=== PATIENT | male | born 1985 | race Caucasian/White ===

== ENCOUNTER 2016-09-06 07:51 | Day surgery (SDC) | payer OTHER ==
[~2016-09-06] VITALS: Ht 185.4 cm; Wt 82.0 kg
[~2016-09-06 07:51] MED LIST: AMOX400S2 PO; AMOX875T PO; HYDR-3240 PO; HYDR473S51 PO; ONDA4TAB13 SL
[2016-09-06] MEDS ORDERED: LACTATED RINGERS 1,000 ML IV SCH (08:36)
[2016-09-06] MEDS ORDERED: NO MEDS PER PT (08:37)
[2016-09-06 08:38] VITALS: BP 127/90
[2016-09-06] MEDS ORDERED: LIDOCAINE 1%, 2ML ONE (08:45)
[2016-09-06] MEDS ORDERED: LIDOCAINE 1%, 2ML SQ PRN (09:00)
[2016-09-06] MEDS ORDERED: PLEASE ENTER HEIGHT AND WEIGHT MC SCH (09:00)
[2016-09-06] MEDS ORDERED: LIDOCAINE 1%-EPI 1:100K, 30ML ONE (10:01)
[2016-09-06] MEDS ORDERED: BUPIVACAINE/PF-EPI 0.25% 1:200K ONE (10:02)
[2016-09-06] MEDS ORDERED: BACITRACIN/POLYMIXIN B SULFATE OINT 14 GM ONE (10:02)
[2016-09-06] MEDS ORDERED: BALANCED SALT OPHTH IRRIG SOLN 18ML ONE (10:02)
[2016-09-06] MEDS ORDERED: MIDAZOLAM 1 MG/ML, 2ML ONE ×2 (10:17)
[2016-09-06] MEDS ORDERED: FENTANYL PF 100 MCG/2ML ONE ×2 (10:17)
[2016-09-06] MEDS ORDERED: PROPOFOL 10 MG/ML, 20ML ONE (10:20)
[2016-09-06] MEDS ORDERED: SUCCINYLCHOLINE 20 MG/ML, 10ML ONE (10:20)
[2016-09-06] MEDS ORDERED: ONDANSETRON 2MG/ML, 2ML ONE (10:20)
[2016-09-06] MEDS ORDERED: hydrALAzine 20 MG/ML, 1ML IV PRN (11:00)
[2016-09-06] MEDS ORDERED: ALBUTEROL SULFATE 2.5 MG/3 ML NPPB PRN (11:00)
[2016-09-06] MEDS ORDERED: METOPROLOL 1 MG/ML, 5ML IV PRN (11:00)
[2016-09-06] MEDS ORDERED: OXYcodone 5 MG/5 ML ORAL.SOL UDC PO PRN (11:00)
[2016-09-06] MEDS ORDERED: FENTANYL PF 100 MCG/2ML IV PRN (11:00)
[2016-09-06] MEDS ORDERED: HYDROmorphone 1 MG/ML, 1ML IV PRN (11:00)
[2016-09-06] MEDS ORDERED: MEPERIDINE/PF 25MG/0.5ML IVPush PRN (11:00)
[2016-09-06] MEDS ORDERED: ACETAMINOPHEN 325 MG TABLET PO PRN (11:00)
[2016-09-06] MEDS ORDERED: PROMETHAZINE 25 MG/ML, 1ML IV PRN (11:00)
[2016-09-06] MEDS ORDERED: ACETAMINOPHEN 650 MG/20.3 ML UDC ONE (11:27)
[2016-09-06] MEDS ORDERED: OXYcodone 5 MG/5 ML ORAL.SOL UDC ONE (11:28)
== END 2016-09-06 13:00 ==
LOC: OUT 07:51
PROVIDERS: ATTEND Otolaryngology
DX: Z47.2 Encounter for removal of internal fixation device (principal)
CPT/HCPCS: 20670; J0330; J2250; J2405; J2704; J3010; J3490; J7120

== ENCOUNTER 2021-03-08 10:10 | Emergency (ER) | payer BC, OTHER ==
[~2021-03-08] VITALS: Ht 188 cm; Wt 84.1 kg
[~2021-03-08 10:10] MED LIST changes: +HYDR-2214 PO; -HYDR-3240 PO; +NO MEDS PER PT
--- NOTE | 2021-03-08 10:32 | NUR ---
shoe sprayer: pt drinking water in [facility], advised to be NPO
--- NOTE | 2021-03-08 12:14 | NUR ---
PT CAME IN CO ANXIETY AND SHAKINESS. IS PERSCRIBED ZOLOT BUT DOESNT TAKE IT REGULARLY
--- NOTE | 2021-03-08 12:38 | NUR ---
PATIENT AWAITING PROVIDER, STATES HE HAS BEEN HAVING WORSENING ANXIETY OVER THE LAST YEAR, HAS NOT SEEN A DOCTOR RECENTLY, WAS PRESECRIBED SERTRALINE BUT STOPPED TAKING, 'DIDN'T LIKE HOW IT MADE ME FEEL'. FAMILY AT BEDSIDE.
[2021-03-08 13:46] LABS: BASOPHILS % (AUTO) 1 % (0-1); EOSINOPHILS % (AUTO) 1 % (1-7); LYMPHOCYTES % (AUTO) 23 % (22-44); MEAN CORPUSCULAR HEMOGLOBIN 32.3 pg (27.5-34.5); MEAN CORPUSCULAR HGB CONC 34.9 g/dL (33.2-36.2); MEAN PLATELET VOLUME 8.7 fL (7.4-10.4); MONOCYTES % (AUTO) 11 % (2-9); NEUTROPHILS % (AUTO) 65 % (42-75); PLATELET COUNT 190 x10^3/uL (130-400); RED BLOOD COUNT 4.99 x10^6/uL (4.38-5.82); RED CELL DISTRIBUTION WIDTH 12.7 % (9.4-14.8)
[2021-03-08 13:57] LABS: ALBUMIN 4.3 g/dL (3.4-5.0); ANION GAP 9 mmol/L (5-15); CHLORIDE 102 mmol/L (98-107)
--- NOTE | 2021-03-08 13:59 | NUR ---
TASK RN NOTE: EKG COMPLETED. NAD NOTED IN PT AT THIS TIME.
[2021-03-08 14:02] LABS: ALANINE AMINOTRANSFERASE 159 U/L (12-78); ALKALINE PHOSPHATASE 70 U/L (45-117); BILIRUBIN,TOTAL 1.1 mg/dL (0.2-1.0); CREATININE 0.81 mg/dL (0.7-1.3); TOTAL PROTEIN 8.5 g/dL (6.4-8.2); TROPONIN I < 0.015 ng/mL (0.000-0.045)
[2021-03-08 14:13] VITALS: BP 133/89
--- NOTE | 2021-03-08 14:32 | NUR ---
Patient/Caregiver given discharge instructions and they have confirmed that they understand the instructions. Patient ambulatory with steady gait.
== END 2021-03-08 14:33 | disposition home or self-care (01) ==
LOC: ED 14:30
DX: R07.89 Other chest pain (principal); F41.1 Generalized anxiety disorder
CPT/HCPCS: 36415; 71045; 80053; 84443; 84484; 85025; 93005; 99285